=== PATIENT | female | born 1990 | race Asian ===

== ENCOUNTER 2016-09-24 02:32 | Emergency (ER) | payer OTHER ==
[~2016-09-24] VITALS: Ht 165.1 cm; Wt 70.4 kg
[~2016-09-24 02:32] MED LIST: HYDR-3240 PO; HYDR25TA11 PO; IBUP-1222 PO; NAPR250T PO; PREN1TAB52 PO; QUET50TA5 PO
[2016-09-24 02:35] VITALS: BP 124/87
[2016-09-25] MEDS ORDERED: BENZ0.5T PO (12:50)
== END 2016-09-24 03:35 | disposition home or self-care (01) ==
LOC: ED 03:09
DX: L03.124 Acute lymphangitis of left upper limb (principal); Z88.6 Allergy status to analgesic agent; S60.562A Insect bite (nonvenomous) of left hand, initial encounter; W57.XXXA Bitten or stung by nonvenomous insect and other nonvenomous arthropods, initial encounter; Y93.9 Activity, unspecified; Y92.89 Other specified places as the place of occurrence of the external cause; Y99.8 Other external cause status
CPT/HCPCS: 99283

== ENCOUNTER 2016-09-25 11:59 | Emergency (ER) | payer OTHER ==
[~2016-09-25] VITALS: Ht 165.1 cm; Wt 68.0 kg
[2016-09-25] MEDS ORDERED: BENZ0.5T PO (12:50)
[2016-09-25] MEDS ORDERED: SODIUM CHLORIDE FLUSH 10ML SYR IVF ONE (13:30)
[2016-09-25] MEDS ORDERED: CLINDAMYCIN PMX 600MG/50ML 50 ML IVPB ONE (13:30)
[2016-09-25 13:58] LABS: BLOOD UREA NITROGEN 11 mg/dL (7-18)
[2016-09-25] MEDS ORDERED: CLINDAMYCIN PMX 600MG/50ML 50 ML ONE (13:58)
[2016-09-25 14:44] VITALS: BP 115/79
== END 2016-09-25 15:26 | disposition home or self-care (01) ==
LOC: ED 15:20
DX: L03.114 Cellulitis of left upper limb (principal)
CPT/HCPCS: 36415; 80048; 82040; 83605; 85025; 87040; 96365

== ENCOUNTER 2016-10-18 12:23 | Emergency (ER) | payer OTHER ==
[~2016-10-18] VITALS: Ht 165.1 cm; Wt 69.5 kg
[~2016-10-18 12:23] MED LIST changes: +BENZ0.5T PO
[2016-10-18] MEDS ORDERED: SODIUM CHLORIDE 0.9% 1,000 ML IV ONE (13:26)
[2016-10-18] MEDS ORDERED: DIPH,PERTUSS(ACELL),TET VAC/PF 0.5 ML IM-VACC ONE (13:30)
[2016-10-18] MEDS ORDERED: AMPICILLIN/SULBACTAM 3 GM in SODIUM CHLORIDE 0.9% 100 ML IVPB ONE (13:30)
[2016-10-18 14:14] LABS: BLOOD UREA NITROGEN 10 mg/dL (7-18)
[2016-10-18 15:45] VITALS: BP 107/55
== END 2016-10-18 15:47 | disposition home or self-care (01) ==
LOC: ED 15:00
DX: L03.123 Acute lymphangitis of right upper limb (principal); L03.113 Cellulitis of right upper limb; Z88.6 Allergy status to analgesic agent
CPT/HCPCS: 36415; 80048; 82040; 85025; 87040; 96365; 96366; 99285; J0295; J7030

== ENCOUNTER 2017-01-25 13:38 | Emergency (ER) | payer OTHER ==
[~2017-01-25] VITALS: Ht 165.1 cm; Wt 73.3 kg
[2017-01-25 13:46] VITALS: BP 120/81
[2017-01-25 15:42] LABS: HCG UR LOT HCG7030192
[2017-01-25 15:58] LABS: HCG UR OBC PASS
== END 2017-01-25 17:27 | disposition home or self-care (01) ==
LOC: ED 15:22
DX: N30.90 Cystitis, unspecified without hematuria (principal)
CPT/HCPCS: 81001; 81025; 87077; 87086; 87186; 87210; 87491; 87591; 87808; 99284

== ENCOUNTER 2017-04-18 21:33 | Emergency (ER) | payer SELFPAY ==
[~2017-04-18] VITALS: Ht 165.1 cm; Wt 75.4 kg
[2017-04-19 00:29] LABS: HCG UR LOT HCG706132
[2017-04-19 00:43] LABS: PATH.CAST-FLAG NOT PRESENT; SPERM-FLAG NOT PRESENT; SRC-FLAG NOT PRESENT; XTAL-FLAG NOT PRESENT; YLC-FLAG NOT PRESENT
[2017-04-19 00:44] LABS: HCG UR OBC PASS
[2017-04-19] MEDS: ACETAMINOPHEN 325 MG TABLET PO ONE (01:00)
[2017-04-19] MEDS ORDERED: ACETAMINOPHEN 325 MG SUPP ONE (01:11)
[2017-04-19] MEDS ORDERED: ACETAMINOPHEN 325 MG TABLET ONE (01:11)
[2017-04-19 01:14] VITALS: BP 107/76
== END 2017-04-19 01:25 | disposition home or self-care (01) ==
LOC: ED 23:59
DX: R55 Syncope and collapse (principal); G44.219 Episodic tension-type headache, not intractable; F31.9 Bipolar disorder, unspecified; R05 Cough
CPT/HCPCS: 71020; 81001; 81025; 87086; 93005; 99285

== ENCOUNTER 2017-09-25 17:03 | Emergency (ER) | payer SELFPAY ==
[~2017-09-25] VITALS: Ht 165.1 cm; Wt 77.7 kg
[~2017-09-25 17:03] MED LIST changes: -BENZ0.5T PO; +BENZ0.5T35 PO
[2017-09-25 17:07] VITALS: BP 118/78
[2017-09-25 17:42] LABS: BASOPHILS # (AUTO) 0.02 x10^3/uL (0-0.1); BASOPHILS % (AUTO) 0 % (0-1); EOSINOPHILS # (AUTO) 0.12 x10^3/uL (0-0.4); EOSINOPHILS % (AUTO) 1 % (1-7); LYMPHOCYTES # (AUTO) 2.78 x10^3/uL (1-3.4); LYMPHOCYTES % (AUTO) 32 % (22-44); MD NO; MEAN CORPUSCULAR HEMOGLOBIN 28.5 pg (27.0-34.8); MEAN CORPUSCULAR HGB CONC 33.5 g/dL (32.4-35.8); MEAN CORPUSCULAR VOLUME 85.1 fL (80-100); MEAN PLATELET VOLUME 9.1 fL (7.4-10.4); MONOCYTES % (AUTO) 8 % (2-9); NEUTROPHILS # (AUTO) 5.04 x10^3/uL (1.8-6.8); NEUTROPHILS % (AUTO) 58 % (42-75); PLATELET COUNT 248 x10^3/uL (130-400); RED BLOOD COUNT 4.84 x10^6/uL (3.82-5.3)
[2017-09-25 17:44] LABS: ALANINE AMINOTRANSFERASE 39 U/L (12-78); ALBUMIN 3.8 g/dL (3.4-5.0); ANION GAP 6 mmol/L (5-15); CALCIUM 8.6 mg/dL (8.5-10.1); CHLORIDE 111 mmol/L (98-107); CREATININE 0.73 mg/dL (0.55-1.02)
[2017-09-25 17:47] LABS: ALKALINE PHOSPHATASE 93 U/L (45-117); BILIRUBIN,TOTAL 0.6 mg/dL (0.2-1.0); TOTAL PROTEIN 7.7 g/dL (6.4-8.2)
== END 2017-09-25 18:31 | disposition home or self-care (01) ==
LOC: ED 17:59
DX: B37.0 Candidal stomatitis (principal); K12.0 Recurrent oral aphthae; F31.9 Bipolar disorder, unspecified
CPT/HCPCS: 36415; 80053; 85025; 87806; 99284; G0475

== ENCOUNTER 2017-11-09 06:32 | Emergency (ER) | payer SELFPAY ==
[~2017-11-09] VITALS: Ht 165.1 cm; Wt 77.3 kg
[2017-11-09 06:34] VITALS: BP 118/77
[2017-11-09 07:26] LABS: BASOPHILS # (AUTO) 0.04 x10^3/uL (0-0.1); BASOPHILS % (AUTO) 1 % (0-1); EOSINOPHILS % (AUTO) 1 % (1-7); LYMPHOCYTES # (AUTO) 2.77 x10^3/uL (1-3.4); LYMPHOCYTES % (AUTO) 30 % (22-44); MD NO; MEAN CORPUSCULAR HEMOGLOBIN 28.5 pg (27.0-34.8); MEAN CORPUSCULAR HGB CONC 33.1 g/dL (32.4-35.8); MONOCYTES % (AUTO) 8 % (2-9); NEUTROPHILS % (AUTO) 60 % (42-75); PLATELET COUNT 238 x10^3/uL (130-400); RED BLOOD COUNT 4.78 x10^6/uL (3.82-5.3); RED CELL DISTRIBUTION WIDTH 13.1 % (9.6-15.2)
[2017-11-09 07:33] LABS: ALBUMIN 3.4 g/dL (3.4-5.0); ANION GAP 6 mmol/L (5-15); CALCIUM 8.6 mg/dL (8.5-10.1); CHLORIDE 110 mmol/L (98-107)
[2017-11-09 07:38] LABS: CREATININE 0.78 mg/dL (0.55-1.02)
[2017-11-09 07:39] LABS: ALANINE AMINOTRANSFERASE 34 U/L (12-78); ALKALINE PHOSPHATASE 77 U/L (45-117); BILIRUBIN,TOTAL 0.7 mg/dL (0.2-1.0); TOTAL PROTEIN 7.2 g/dL (6.4-8.2)
== END 2017-11-09 08:51 | disposition home or self-care (01) ==
LOC: ED 08:00
DX: N93.8 Other specified abnormal uterine and vaginal bleeding (principal); F31.9 Bipolar disorder, unspecified; Z88.5 Allergy status to narcotic agent
CPT/HCPCS: 36415; 76801; 80053; 84702; 85025; 86901; 99285

== ENCOUNTER 2018-05-28 12:43 | Emergency (ER) | payer OTHER ==
[~2018-05-28] VITALS: Ht 165.1 cm; Wt 82.9 kg
[2018-05-28 12:47] VITALS: BP 126/84
[2018-05-28 14:37] LABS: BASOPHILS % (AUTO) 1 % (0-1); EOSINOPHILS % (AUTO) 1 % (1-7); LYMPHOCYTES # (AUTO) 3.04 x10^3/uL (1-3.4); LYMPHOCYTES % (AUTO) 27 % (22-44); MD NO; MEAN CORPUSCULAR HEMOGLOBIN 28.5 pg (27.0-34.8); MEAN CORPUSCULAR VOLUME 86.4 fL (80-100); MEAN PLATELET VOLUME 8.7 fL (7.4-10.4); MONOCYTES # (AUTO) 0.74 x10^3/uL (0.2-0.8); MONOCYTES % (AUTO) 7 % (2-9); NEUTROPHILS # (AUTO) 7.39 x10^3/uL (1.8-6.8); NEUTROPHILS % (AUTO) 65 % (42-75); PLATELET COUNT 282 x10^3/uL (130-400); RED BLOOD COUNT 4.65 x10^6/uL (3.82-5.3)
[2018-05-28 14:45] LABS: ALBUMIN 3.5 g/dL (3.4-5.0); ANION GAP 7 mmol/L (5-15); CHLORIDE 109 mmol/L (98-107); CREATININE 0.77 mg/dL (0.55-1.02)
[2018-05-28 14:50] LABS: MICROSCOPIC AUTO
[2018-05-28 14:59] LABS: CULTURE INDICATED? YES
--- NOTE | 2018-05-28 15:22 | NUR ---
Pt amb. to rm 10 from lobby
--- NOTE | 2018-05-28 15:40 | NUR ---
RECEIVED REPORT FROM IVANA BELLE. CARE ASSUMED. PT IN US AT THIS TIME. TO ASSESS UPON RETURMN.
--- NOTE | 2018-05-28 16:08 | NUR ---
REPORT AND CARE TO STEWART BELLE. PT REMAINS IN US.
--- NOTE | 2018-05-28 16:24 | NUR ---
RECEIVED REPORT FROM LATOYA
== END 2018-05-28 16:50 | disposition home or self-care (01) ==
LOC: ED 16:05
DX: O9A.211 Injury, poisoning and certain other consequences of external causes complicating pregnancy, first trimester (principal); F31.9 Bipolar disorder, unspecified; Z3A.01 Less than 8 weeks gestation of pregnancy; W01.0XXA Fall on same level from slipping, tripping and stumbling without subsequent striking against object, initial encounter; Y93.89 Activity, other specified; Y92.89 Other specified places as the place of occurrence of the external cause; Y99.8 Other external cause status
CPT/HCPCS: 36415; 76801; 80048; 81001; 82040; 84702; 85025; 87086; 99284

== ENCOUNTER 2018-12-11 05:45 | Outpatient (CLI) | payer SELFPAY ==
[~2018-12-11] VITALS: Ht 165.1 cm; Wt 86.8 kg
[2018-12-11 05:49] VITALS: BP 129/86
== END 2018-12-11 10:10 | disposition home or self-care (01) ==
LOC: LDOP 05:45
PROVIDERS: ATTEND Obstetrics & Gynecology
DX: O46.8X3 Other antepartum hemorrhage, third trimester (principal); Z3A.33 33 weeks gestation of pregnancy
CPT/HCPCS: 36415; 59025; 76815; 80307; 81001; 82950; 87086; 99211; G0463